=== PATIENT | female | born 1955 | race African-American/Black ===

== ENCOUNTER 2016-09-30 17:27 | Emergency (ER) | payer OTHER ==
[2016-09-30 17:56] LABS: BASO% 0.1 % (0.0-0.8); HEMATOCRIT 39.6 % (37.0-47.0); HEMOGLOBIN 12.6 g/dL (12.0-16.0); IMM GRAN# 0.12 X1000 (0.0-0.04); IMM GRAN% 0.4 % (0.0-0.5); LYMPH% 6.5 % (20.5-51.1); MANUAL DIFF NEEDED? NO; MCH 28.3 PG (27-31); MCHC 31.8 g/dL (33-37); MCV 88.8 FL (81-99); MONO# 1.24 X1000 (0.11-0.59); MONO% 4.5 % (1.7-9.3); NEUT% 88.5 % (42.2-75.2); PLT 372 X1000 (130-400); RBC 4.46 XMIL (4.2-5.4)
[2016-09-30 18:16] LABS: AGAP 15; ALBUMIN 4.6 g/dL (3.5-5.0); ALKALINE PHOSPHATASE 97 U/L (32-104); BUN 10 mg/dL (8-22); CALCIUM 10.1 mg/dL (8.8-10.2); CHLORIDE 104 mmol/L (98-107); COSMO 287; GOT 14 U/L (10-30); GPT 24 U/L (10-36); SODIUM 143 mmol/L (136-145); TCO2 24 mmol/L (25-35); TOTAL BILIRUBIN 0.28 mg/dL (0.20-1.00); TOTAL PROTEIN 7.4 g/dL (6.3-8.3)
--- NOTE | 2016-09-30 19:02 | PROVIDER DOCUMENTATION ---
HPI-Headache - General Chief Complaint: B/P Problems Stated Complaint: BP PROBLEMS Time Seen by Provider: 09/30/16 18:56 Source: patient Allergies/Adverse Reactions: Patient Allergies Allergy/AdvReac Type Severity Reaction Status Date / Time No Known Allergies Allergy Verified 09/30/16 20:22 Home Medications: Atorvastatin Calcium [Lipitor] 20 mg PO DAILY 12/03/15 Levothyroxine [Synthroid] 150 microgm PO DAILY 12/03/15 Losartan [Cozaar] 25 mg PO DAILY 12/03/15 - History of Present Illness-Headache Nature of Presenting Problem: Pt is a 61 y/o AA female c chief complaint of headache and elevated blood pressure x 2 days. Pt has been checking her bp at home. Pt describes her headache as global in nature. Pt denies any changes in vision, decreased urination. Pt was seen by her pcp last week and had a normal check up. Pt has a h/o htn and states she is compliant c her medication. Pt states she had an MRI of her head to evaluate recurrent headaches - ordered by Dr. Weaver (PCP) . Additionally, pt goes to [facility] and was seen yesterday for an injection in her R sciatic area for treatment of chronic pain. Pt was seen at [facility] two weeks ago for apparent panic attack. On arrival, pt is hypertensive and in minimal distress. Review of Systems - Adult - REVIEW OF SYSTEMS - ADULT Constitutional: reports: no symptoms reported. denies: chills, fatique Eyes: reports: no symptoms reported. denies: blurred vision, double vision Ears, Nose, Mouth & Throat: reports: no symptoms reported. denies: ear pain, nose pain Cardiovascular: reports: no symptoms reported. denies: chest pain, irregular heart rate, orthopnea Respiratory: reports: no symptoms reported. denies: cough, shortness of breath Gastrointestinal: reports: no symptoms reported. denies: abdominal pain, diarrhea, nausea Genitourinary: reports: no symptoms reported. denies: dysuria, frequent UTI's, hematuria Musculoskeletal: reports: no symptoms reported. denies: joint pain, joint swelling Integumentary: reports: no symptoms reported. denies: hives, itching Neurological: reports: no symptoms reported. denies: numbness, paresthesia Psychiatric: reports: no symptoms reported. denies: anxiety, emotional problems Endocrine: reports: no symptoms reported. denies: cold intolerance, heat intolerance Hematologic/Lymphatic: reports: no symptoms reported. denies: blood clots, low blood count Allergic/Immunologic: reports: no symptoms reported. denies: allergic reactions , food allergy All Other Systems: Reviewed and Negative Past History - Adult - PAST MEDICAL HISTORY-ADULT Review of Records: reports: Old Records Reviewed, Nursing Assessment Review, Medications Reviewed, Social history reviewed & non-contributory. Major Childhood Illnesses: reports: denies history Cardiovascular: reports: HTN, hyperlipidemia Respiratory: reports: denies history Gastrointestinal: reports: denies history Obstetrical/Gynecological: reports: denies history Genitourinary: reports: denies history Musculoskeletal: reports: arthritis Neurological: reports: headaches/migraines Endocrine/Immune: reports: thyroid disorder Other Conditions: reports: denies history - PRIOR SURGERIES/PROCEDURES Surgical/Procedure History: reports: joint replacement (total knee replacement) - IMMUNIZATION STATUS Childhood Immunizations: See Nurse Assessment Flu Vaccine: See Nurse Assessment - FAMILY HISTORY Family History: reviewed, not pertinent - SOCIAL HISTORY Smoking: cigarettes Provider spent 3-5 mins advising pt. on dangers of tobacco.: Discussed manners to quit use, and f/u contacts for add'l counseling. Substance Use: none/never Alcohol Use Frequency: never Living Situation: family Physical Exam- Neurological - Physical Exam-Neuro Initial Vital Signs Reviewed: Yes General Appearance: appears well, alert, no apparent distress Eye Exam: bilateral eye: normal inspection, PERRL, EOMI HENMT: normocephalic/atraumatic, normal ENT inspection, TMs normal, pharynx normal Head Injury: no evidence of injury Neck: non-tender, full range of motion, supple, normal inspection Respiratory: chest non-tender, lungs clear, normal breath sounds, no pleuratic chest pain, no respiratory distress, no accessory muscle use. negative: respiratory distress, decreased breath sounds, accessory muscle use, crackles, rales, rhonchi, stridor, wheezing, dull on percussion, prolonged expiration, pain on inspiration, plerual rub, retractions, splinting, decreased rate, increased rate, crepitus Cardiovascular: normal peripheral pulses, regular rate, rhythm, no edema, no gallop, no JVD, no murmur Abdominal Exam: normal bowel sounds, non tender, soft, no organomegaly, no pulsatile mass Lymphatic: no adenopathy Extremity: normal range of motion, non-tender, normal gait, normal inspection, no pedal edema, no calf tenderness, normal capillary refill, pelvis stable finger lift operator Exam: normal hearing, normal speech, PERRL Coordination/Gait: normal finger to nose, normal gait, negative Romberg's sign Motor/Sensory: no motor deficit, no sensory deficit, no pronator drift, negative Babinski's sign Neurologic: finger lift operator II-XII nml as tested, no motor/sensory deficits Integumentary: normal color, normal turgor, warm/dry Psych/Mental Status: AL, normal mood/affect, normal thought content, normal thought process, oriented x 3 - Glascow Coma Scale Best Eye Response: (4) open spontaneously Best Verbal Response: (5) oriented Best Motor Response: (6) obeys commands Progress - PLAN OF CARE/RESULTS Progress/Plan/Lab Results: Orders Category Date Time Status CHEST-2 VIEWS [RAD] Stat Exams 09/30/16 19:02 Taken HEAD W/O CONTRAST [CT] Stat Exams 09/30/16 19:07 Taken BLOOD CULTURE [BLDCUL] Stat Lab 09/30/16 19:35 Results CBC WITH ELECTRONIC DIFF [HEME] Stat Lab 09/30/16 17:42 Completed CK PROFILE [SP CHEM] Stat Lab 09/30/16 17:42 Completed CMP [COMPREHENSIVE METABOLIC PANEL] [CHEM] Stat Lab 09/30/16 17:42 Completed LACTATE, PLASMA [CHEM] Stat Lab 09/30/16 19:35 Completed TROPONIN T Stat Lab 09/30/16 17:42 Completed URINALYSIS W/POSS RFLX CULT [URINALYSIS] Stat Lab 09/30/16 17:43 Completed Losartan [Cozaar] Med 09/30/16 19:07 Discontinued 50 mg PO NOW ONE Laboratory Tests 09/30/16 09/30/16 09/30/16 17:42 17:42 17:42 WBC 27.74 H RBC 4.46 Hgb 12.6 Hct 39.6 MCV 88.8 MCH 28.3 MCHC 31.8 L RDW Std Deviation 13.4 Plt Count 372 MPV 11.0 H Immature Gran % (Auto) 0.4 Neut % (Auto) 88.5 H Lymph % (Auto) 6.5 L Darke % (Auto) 4.5 Eos % (Auto) 0.0 Baso % (Auto) 0.1 Immature Gran # (Auto) 0.12 H Neut # (Auto) 24.56 H Lymph # (Auto) 1.80 Darke # (Auto) 1.24 H Eos # (Auto) 0.00 Baso # (Auto) 0.02 Sodium 143 Potassium 4.0 Chloride 104 Carbon Dioxide 24 L Anion Gap 15 BUN 10 Creatinine 0.7 Estimated GFR/1.73 m2 > 60 BUN/Creatinine Ratio 14 Glucose 147 H Calculated Osmolality 287 Calcium 10.1 Total Bilirubin 0.28 AST 14 ALT 24 Alkaline Phosphatase 97 Creatine Kinase 69 Troponin T Total Protein 7.4 Albumin 4.6 Globulin 2.8 Albumin/Globulin Ratio 1.6 Plasma Lactate Urine Source Urine Color Urine Turbidity Urine pH Ur Specific [place] Urine Protein Ur Glucose (Stick) Ur Ketones (Stick) Urine Blood Urine Nitrite Urine Bilirubin Urobilinogen Dipstick Urine Leukocytes Urine WBC (Auto) Urine RBC (Auto) U Epithel Cells (Auto) Urine Bacteria (Auto) 09/30/16 09/30/16 09/30/16 17:42 17:43 19:35 WBC RBC Hgb Hct MCV MCH MCHC RDW Std Deviation Plt Count MPV Immature Gran % (Auto) Neut % (Auto) Lymph % (Auto) Darke % (Auto) Eos % (Auto) Baso % (Auto) Immature Gran # (Auto) Neut # (Auto) Lymph # (Auto) Darke # (Auto) Eos # (Auto) Baso # (Auto) Sodium Potassium Chloride Carbon Dioxide Anion Gap BUN Creatinine Estimated GFR/1.73 m2 BUN/Creatinine Ratio Glucose Calculated Osmolality Calcium Total Bilirubin AST ALT Alkaline Phosphatase Creatine Kinase Troponin T < 0.010 Total Protein Albumin Globulin Albumin/Globulin Ratio Plasma Lactate 1.9 Urine Source CLEAN CATCH Urine Color YELLOW Urine Turbidity CLEAR Urine pH 5.5 Ur Specific [place] 1.018 Urine Protein NEGATIVE Ur Glucose (Stick) NEGATIVE Ur Ketones (Stick) NEGATIVE Urine Blood NEGATIVE Urine Nitrite NEGATIVE Urine Bilirubin NEGATIVE Urobilinogen Dipstick NORMAL Urine Leukocytes NEGATIVE Urine WBC (Auto) <10 Urine RBC (Auto) <10 U Epithel Cells (Auto) <10 Urine Bacteria (Auto) NEGATIVE Vital Signs - 24 hr 09/30/16 09/30/16 17:34 19:47 Temperature 98.6 F Pulse Rate 88 79 Respiratory 18 20 Rate Blood Pressure 186/99 163/83 O2 Sat by Pulse 100 100 Oximetry - REASSESSMENT Reassessment #1 Time Reassessed: 21:51 (Discussed pt c Dr. Sullivan (ER MD) who went to bedside to examine pt after reviewing all imaging studies and labs. Dr. Sullivan agreed c plan of care and disposition.) - XRAY 1 XRAY Study: Chest Impression: Normal XRAY Interpretation: nad - CT/MRI 1 CT Study: Head Impression: Normal CT Results: nad - radiology Departure - Departure Time of Disposition Order: 21:31 DIAGNOSIS: Headache Qualifiers: Headache type: unspecified Headache chronicity pattern: acute headache Intractability: not intractable Qualified Code(s): R51 - Headache Hypertension Qualifiers: Hypertension type: essential hypertension Qualified Code(s): I10 - Essential ( primary) hypertension Leukocytosis Qualifiers: Leukocytosis type: unspecified Qualified Code(s): D72.829 - Elevated white blood cell count, unspecified Disposition: HOME 01 Certified Medical Emergency: Emergent Condition: Stable Additional Instructions: FOLLOW UP WITH PRIMARY CARE PHYSICIAN FOR RE-CHECK OF CBC IN 4 DAYS. ED Follow Up Instructions: You have been treated by a care provider in the Emergency Department. These instructions are being provided to you so you can have an understanding of how to care for yourself upon discharge. Upon discharge from the Emergency Department, you are responsible for making arrangements for follow-up care by a physician of your choice. Take all prescribed medications as directed. Return to the Emergency Department immediately for any new or worsening symptoms. You may call the Physician Referral phone number at [phone] to obtain a list of Physicians who are taking new patients. Referrals: Jae Weaver MD [Primary Care Provider] - Instructions: Migraine Headache, [id number] Attestation - Physician/ Mid-level Attestation Patient care was provided by Mid-level provider (AIRCRAFT NAVIGATOR/PA):: Yes Mid-level provider:: Ming Basilio Mid-level documentation review:: The Mid-level provider documentation, treatment plan and medical decision making was reviewed by the physician who agrees with all treatment and medical decision making by the P.
[2016-09-30] MEDS ORDERED: COZAAR PO ONE (19:07)
[2016-09-30 19:46] LABS: URINE CULTURE NEEDED? NO; URINE MICRO REVIEW NEEDED? NO; URINE SOURCE CLEAN CATCH
[2016-09-30 19:49] LABS: BILIRUBIN URINE NEGATIVE (NEGATIVE); BLOOD URINE NEGATIVE (NEGATIVE); COLOR YELLOW; GLUCOSE URINE NEGATIVE (NEGATIVE); LEUKOCYTES URINE NEGATIVE (NEGATIVE); NITRITE URINE NEGATIVE (NEGATIVE); PH URINE 5.5; PROTEIN URINE NEGATIVE (NEGATIVE); SP GRAVITY URINE 1.018; TURBIDITY URINE CLEAR (CLEAR); UROBILINOGEN URINE NORMAL (NORMAL)
[2016-09-30 19:50] LABS: UR EPITHELIAL CELLS <10 /HPF (<10); URINE BACTERIA NEGATIVE /HPF; URINE RBC <10 /HPF (<10); URINE WBC <10 /HPF (<10)
[2016-09-30 21:57] VITALS: BP 181/75
--- NOTE | 2016-09-30 22:42 | Diag Imaging Result Document ---
PROCEDURE NAME: HEAD W/O CONTRAST - 09/30/2016 CT HEAD WITHOUT CONTRAST: COMPARISON: 09/20/2016. FINDINGS: There is no discrete intracranial mass, mass effect, or intracranial hemorrhage. There is no evidence of hydrocephalus. There is no evidence of acute infarct given the limited sensitivity of CT versus MRI. The surrounding soft tissues and bony structures are essentially unremarkable. IMPRESSION: No evidence of acute intracranial pathology.
--- NOTE | 2016-09-30 23:25 | Diag Imaging Result Document ---
PROCEDURE NAME: CHEST-2 VIEWS - 09/30/2016 PA AND LATERAL RADIOGRAPH OF THE CHEST: COMPARISON: 09/20/2015. FINDINGS: The lungs are grossly clear. There is no discrete pleural fluid collection or pneumothorax. The cardiomediastinal silhouette and upper airway are grossly unremarkable. IMPRESSION: No evidence of acute chest pathology.
== END 2016-09-30 21:58 | disposition home or self-care (01) ==
LOC: ED 17:27
DX: R51 Headache (principal); I10 Essential (primary) hypertension; D72.829 Elevated white blood cell count, unspecified; E78.5 Hyperlipidemia, unspecified; M19.90 Unspecified osteoarthritis, unspecified site; E07.9 Disorder of thyroid, unspecified; F17.210 Nicotine dependence, cigarettes, uncomplicated; Z79.899 Other long term (current) drug therapy; Z71.6 Tobacco abuse counseling; Z96.659 Presence of unspecified artificial knee joint
CPT/HCPCS: 36415; 70450; 71020; 80053; 81001; 82550; 83605; 84484; 85025; 87040

== ENCOUNTER 2016-11-26 09:47 | Emergency (ER) | payer OTHER ==
[2016-11-26 10:51] LABS: MANUAL DIFF NEEDED? NO
[2016-11-26 10:55] LABS: BASO% 0.2 % (0.0-0.8); EOS# 0.03 X1000 (0.0-0.7); EOS% 0.3 % (0.0-10.0); HEMOGLOBIN 12.3 g/dL (12.0-16.0); IMM GRAN# 0.02 X1000 (0.0-0.04); IMM GRAN% 0.2 % (0.0-0.5); LYMPH# 2.29 X1000 (1.2-3.4); MCH 28.6 PG (27-31); MCHC 32.4 g/dL (33-37); MCV 88.4 FL (81-99); MONO# 0.77 X1000 (0.11-0.59); MONO% 7.1 % (1.7-9.3); MPV 10.7 FL (7.4-10.4); NEUT% 71.2 % (42.2-75.2); PLT 253 X1000 (130-400)
[2016-11-26 11:07] LABS: INR 1.07; PROTIME 11.3 Seconds (9.2-11.7); PTT 26.6 Seconds (22.0-36.0)
--- NOTE | 2016-11-26 11:12 | Diag Imaging Result Document ---
PROCEDURE NAME: HEAD W/O CONTRAST - 11/26/2016 CT BRAIN WITHOUT CONTRAST: COMPARISON: Compared to 09/30/2016. FINDINGS: No parenchymal hemorrhage. No epidural or subdural hematoma. No subarachnoid hemorrhage. No mass identified on this noncontrasted exam. No hydrocephalus. No sinus opacification. IMPRESSION: No hemorrhage. Negative brain CT without contrast. A preliminary report was given at 10:33 a.m.
[2016-11-26 11:13] LABS: AGAP 16; ALBUMIN 4.3 g/dL (3.5-5.0); ALKALINE PHOSPHATASE 87 U/L (32-104); BUN 11 mg/dL (8-22); CALCIUM 8.9 mg/dL (8.8-10.2); CHLORIDE 99 mmol/L (98-107); COSMO 280; GOT 22 U/L (10-30); GPT 23 U/L (10-36); POTASSIUM 4.2 mmol/L (3.5-5.1); SODIUM 140 mmol/L (136-145); TCO2 25 mmol/L (25-35); TOTAL PROTEIN 7.2 g/dL (6.3-8.3)
--- NOTE | 2016-11-26 11:47 | Diag Imaging Result Document ---
PROCEDURE NAME: CHEST-PORTABLE - 11/26/2016 PORTABLE CHEST: COMPARISON: Compared to 09/30/2016. FINDINGS: The lungs are well expanded. The heart is not enlarged. The vessels are not distended. No pneumonia. No pleural effusions identified. No free air beneath the diaphragm. IMPRESSION: Negative chest.
[2016-11-26 12:00] LABS: URINE CULTURE NEEDED? NO; URINE MICRO REVIEW NEEDED? NO; URINE SOURCE CLEAN CATCH
[2016-11-26 12:05] LABS: BILIRUBIN URINE NEGATIVE (NEGATIVE); BLOOD URINE NEGATIVE (NEGATIVE); COLOR YELLOW; GLUCOSE URINE NEGATIVE (NEGATIVE); LEUKOCYTES URINE NEGATIVE (NEGATIVE); NITRITE URINE NEGATIVE (NEGATIVE); PROTEIN URINE NEGATIVE (NEGATIVE); SP GRAVITY URINE 1.012; TURBIDITY URINE CLEAR (CLEAR); UROBILINOGEN URINE NORMAL (NORMAL)
[2016-11-26 12:06] LABS: UR EPITHELIAL CELLS <10 /HPF (<10); URINE BACTERIA NEGATIVE /HPF; URINE RBC <10 /HPF (<10); URINE WBC <10 /HPF (<10)
[2016-11-26 12:16] LABS: UR AMPHETAMINES QUAL NONE DETECTED (NONE DETECT); UR BARBITUATES QUAL NONE DETECTED (NONE DETECT); UR BENZODIAZEPIN QUAL PRESUMPTIVE POSITIVE (NONE DETECT); UR CANNABINOIDS QUAL NONE DETECTED (NONE DETECT); UR COCAINE QUAL NONE DETECTED (NONE DETECT); UR METHADONE QUAL NONE DETECTED (NONE DETECT); UR OPIATES QUAL NONE DETECTED (NONE DETECT); UR OXYCODONE QUAL PRESUMPTIVE POSITIVE (NONE DETECT); UR PCP QUAL NONE DETECTED (NONE DETECT)
--- NOTE | 2016-11-26 12:16 | PROVIDER DOCUMENTATION ---
HPI-Neurological Disorder <Uriel Fatima - Last Filed: 11/26/16 12:43> - General Source: patient - History of Present Illness-Neuro Headache Location: reports: frontal Severity: reports: mild Onset/Duration: reports: this morning Timing: reports: improving Context: reports: none Character of Altered Mental Status: reports: N/A Any recent trauma/injury?: reports: none New weakness or altered sensation location:: reports: none Cognitive Baseline: alert, oriented x3 Associated Symptoms: reports: headache Similar Symptoms Previously?: No Recently seen or treated by another doctor?: No <Kika Campo - Last Filed: 11/26/16 15:23> - General Chief Complaint: Brain Attack Stated Complaint: FACIAL TINGLING,HERNANDEZ,HANDS SHAKING Time Seen by Provider: 11/26/16 13:27 Allergies/Adverse Reactions: Patient Allergies Allergy/AdvReac Type Severity Reaction Status Date / Time No Known Allergies Allergy Verified 11/26/16 10:21 Home Medications: Home Medication List Medication Instructions Recorded Confirmed Last Taken Type Atorvastatin Calcium [Lipitor] 20 mg PO DAILY 12/03/15 11/26/16 11/25/16 18:00 History Levothyroxine [Synthroid] 150 microgm PO DAILY 12/03/15 11/26/16 11/26/16 07:00 History Losartan [Cozaar] 25 mg PO DAILY 12/03/15 11/26/16 11/26/16 07:00 History Alprazolam [Xanax] 0.25 mg PO TID PRN #5 tablet 11/26/16 Unknown Rx Hydroxyzine HCl 50 mg PO 4X11/26/16 11/26/16 11/26/16 09:30 History - History of Present Illness-Neuro Nature of Presenting Problem: says that she has not had 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 Patient specifically asked about any difficulty speaking or facial weakness and she says no and that she used to get xanax , however, she has been on another medication that is not working. (Uriel Fatima) Pt is a 61 yof who came to the ED with a cc of tingling of the face. Pt reports she woke up this morning at 5:30 shaking, her face was tingling, and she had a headache. Pt reports she was anxious and has family issues. Pt reports she normally takes anxiety medication but says they do not work. (Kika Campo) Review of Systems - Adult - REVIEW OF SYSTEMS - ADULT Constitutional: denies: chills, fever Eyes: reports: no symptoms reported Ears, Nose, Mouth & Throat: denies: sinus problem, loose teeth Cardiovascular: reports: no symptoms reported Respiratory: reports: no symptoms reported Gastrointestinal: reports: no symptoms reported Genitourinary: reports: no symptoms reported Musculoskeletal: reports: no symptoms reported Integumentary: reports: no symptoms reported Neurological: reports: headache/migraines. denies: seizure, syncope Psychiatric: reports: anxiety. denies: anti-depressant use, insomnia, suicidal thoughts Endocrine: reports: no symptoms reported Hematologic/Lymphatic: reports: no symptoms reported Allergic/Immunologic: reports: no symptoms reported All Other Systems: Reviewed and Negative <Kika Campo - Last Filed: 11/26/16 15:23> Past History - Adult - PAST MEDICAL HISTORY-ADULT Review of Records: reports: Old Records Reviewed, Nursing Assessment Review Major Childhood Illnesses: reports: denies history Cardiovascular: reports: HTN, hyperlipidemia Respiratory: reports: denies history Gastrointestinal: reports: denies history Obstetrical/Gynecological: reports: denies history Genitourinary: reports: denies history Musculoskeletal: reports: arthritis Neurological: reports: headaches/migraines Psychiatric: reports: anxiety Endocrine/Immune: reports: thyroid disorder Other Conditions: reports: denies history - PRIOR SURGERIES/PROCEDURES Surgical/Procedure History: reports: joint replacement (total knee replacement) - IMMUNIZATION STATUS Childhood Immunizations: See Nurse Assessment Flu Vaccine: See Nurse Assessment - FAMILY HISTORY Family History: reviewed, not pertinent <Kika Campo - Last Filed: 11/26/16 15:23> Physical Exam- Neurological - Physical Exam-Neuro Initial Vital Signs Reviewed: Yes General Appearance: alert, no apparent distress HENMT: TMs normal, pharynx normal, other (cataract in both eyes) Head Injury: no evidence of injury Neck: non-tender Respiratory: chest non-tender, lungs clear, normal breath sounds, no pleuratic chest pain, no respiratory distress, no accessory muscle use Cardiovascular: normal peripheral pulses, regular rate, rhythm, no edema, no gallop, no JVD, no murmur Abdominal Exam: normal bowel sounds, non tender, soft, no organomegaly, no pulsatile mass Lymphatic: no adenopathy Extremity: normal range of motion [place] Exam: normal hearing, normal speech Coordination/Gait: normal finger to nose, normal gait Motor/Sensory: no motor deficit, no sensory deficit, no pronator drift Neurologic: [place] II-XII nml as tested, grossly normal, no motor/sensory deficits Integumentary: normal color, normal turgor, warm/dry Psych/Mental Status: normal mood/affect, normal thought content, normal thought process, oriented x 3 - Glascow Coma Scale Best Eye Response: (4) open spontaneously Best Verbal Response: (5) oriented Best Motor Response: (6) obeys commands Total Glascow Score: 15 <Kika Campo - Last Filed: 11/26/16 15:23> Progress <Uriel Fatima - Last Filed: 11/26/16 12:43> - EKG 1 Time of EKG reading by physician:: 10:21 EKG Read and Signed by:: Uriel Fatima EKG Interpretation (*Must complete 3 of following elements*): Abnormal Rate: 95 (nonspecific T wave abnormality ) Rhythm: NSR - XRAY 1 XRAY Study: Chest (negative chest) - CT/MRI 1 CT Study: Head (no hemorrhage. negative brain CT without contrast.) <Kika Campo - Last Filed: 11/26/16 15:23> - PLAN OF CARE/RESULTS Progress/Plan/Lab Results: Vital Signs - 24 hr 11/26/16 11/26/16 09:51 10:28 Temperature 98.2 F Pulse Rate 121 H 94 H Respiratory 18 17 Rate Blood Pressure 152/97 153/79 O2 Sat by Pulse 99 97 Oximetry Orders Category Date Time Status Cardiac Monitoring DIRECTED Care 11/26/16 10:44 Active Finger Stick Blood Sugar (ED) DIRECTED Care 11/26/16 10:44 Active Oxygen Therapy- ED Nursing DIRECTED Care 11/26/16 10:44 Active Saline Loc NOW Care 11/26/16 10:44 Active CHEST-PORTABLE [RAD] Stat Exams 11/26/16 10:44 Draft HEAD W/O CONTRAST [CT] Stat Exams 11/26/16 09:52 Completed CBC WITH ELECTRONIC DIFF [HEME] Stat Lab 11/26/16 10:25 Completed COMPREHENSIVE METABOLIC PANEL [CHEM] Stat Lab 11/26/16 10:25 Completed PROTIME WITH INR [COAG] Stat Lab 11/26/16 10:25 Completed PTT [COAG] Stat Lab 11/26/16 10:25 Completed TROPONIN T Stat Lab 11/26/16 10:25 Completed URINALYSIS W/POSS RFLX CULT [URINALYSIS] Stat Lab 11/26/16 11:50 Completed URINE DRUG SCREEN Stat Lab 11/26/16 11:50 Received EKG [EKG] Stat Ther 11/26/16 10:19 Ordered Laboratory Tests 11/26/16 11/26/16 11/26/16 10:25 10:25 10:25 WBC 10.88 H RBC 4.30 Hgb 12.3 Hct 38.0 MCV 88.4 MCH 28.6 MCHC 32.4 L RDW Std Deviation 12.8 Plt Count 253 MPV 10.7 H Immature Gran % (Auto) 0.2 Neut % (Auto) 71.2 Lymph % (Auto) 21.0 Coos % (Auto) 7.1 Eos % (Auto) 0.3 Baso % (Auto) 0.2 Immature Gran # (Auto) 0.02 Neut # (Auto) 7.75 H Lymph # (Auto) 2.29 [place] # (Auto) 0.77 H Eos # (Auto) 0.03 Baso # (Auto) 0.02 PT 11.3 INR 1.07 PTT (Actin FS) 26.6 Sodium 140 Potassium 4.2 Chloride 99 Carbon Dioxide 25 Anion Gap 16 BUN 11 Creatinine 0.8 Estimated GFR/1.73 m2 > 60 BUN/Creatinine Ratio 14 Glucose 121 H Calculated Osmolality 280 Calcium 8.9 Total Bilirubin 0.40 AST 22 ALT 23 Alkaline Phosphatase 87 Troponin T Total Protein 7.2 Albumin 4.3 Globulin 2.9 Albumin/Globulin Ratio 1.5 Urine Source Urine Color Urine Turbidity Urine pH Ur Specific [place] Urine Protein Ur Glucose (Stick) Ur Ketones (Stick) Urine Blood Urine Nitrite Urine Bilirubin Urobilinogen Dipstick Urine Leukocytes Urine WBC (Auto) Urine RBC (Auto) U Epithel Cells (Auto) Urine Bacteria (Auto) 11/26/16 11/26/16 10:25 11:50 WBC RBC Hgb Hct MCV MCH MCHC RDW Std Deviation Plt Count MPV Immature Gran % (Auto) Neut % (Auto) Lymph % (Auto) [place] % (Auto) Eos % (Auto) Baso % (Auto) Immature Gran # (Auto) Neut # (Auto) Lymph # (Auto) [place] # (Auto) Eos # (Auto) Baso # (Auto) PT INR PTT (Actin FS) Sodium Potassium Chloride Carbon Dioxide Anion Gap BUN Creatinine Estimated GFR/1.73 m2 BUN/Creatinine Ratio Glucose Calculated Osmolality Calcium Total Bilirubin AST ALT Alkaline Phosphatase Troponin T < 0.010 Total Protein Albumin Globulin Albumin/Globulin Ratio Urine Source CLEAN CATCH Urine Color YELLOW Urine Turbidity CLEAR Urine pH 5.0 Ur Specific [place] 1.012 Urine Protein NEGATIVE Ur Glucose (Stick) NEGATIVE Ur Ketones (Stick) TRACE A Urine Blood NEGATIVE Urine Nitrite NEGATIVE Urine Bilirubin NEGATIVE Urobilinogen Dipstick NORMAL Urine Leukocytes NEGATIVE Urine WBC (Auto) <10 Urine RBC (Auto) <10 U Epithel Cells (Auto) <10 Urine Bacteria (Auto) NEGATIVE (Kika Campo) Departure - Departure Time of Disposition Order: 12:43 <Uriel Fatima - Last Filed: 11/26/16 12:43> - Departure Time of Disposition Order: 15:21 Certified Medical Emergency: Emergent <Kika Campo - Last Filed: 11/26/16 15:23> - Departure DIAGNOSIS: Hyperventilation, nonpsychogenic Disposition: HOME 01 Condition: Stable Additional Instructions: ED Follow Up Instructions: You have been treated by a care provider in the Emergency Department. These instructions are being provided to you so you can have an understanding of how to care for yourself upon discharge. Upon discharge from the Emergency Department, you are responsible for making arrangements for follow-up care by a physician of your choice. Take all prescribed medications as directed. Return to the Emergency Department immediately for any new or worsening symptoms. You may call the Physician Referral phone number at [phone] to obtain a list of Physicians who are taking new patients. Prescriptions: Alprazolam [Xanax] 0.25 mg PO TID PRN #5 tablet PRN Reason: Anxiety Referrals: Jae Weaver MD [Primary Care Provider] - Forms: Return to School/Parent Work Instructions: Hyperventilation Attestation - Scribe Verification/Attestation Scribe:: Kika Campo Acting as Scribe for:: Uriel Fatima Scribe documention review:: This chart was documented by a scribe and accurately reflects the service the provider performed and the decisions made by the provider. <Kika Campo - Last Filed: 11/26/16 15:23> Physician Attestation - NIH Stroke Scale Level of Consciousness: 0-Alert LOC Questions (ask month and age): 0-Answers Both Correctly LOC Commands (ask to open & close eyes;make a fist, let go): 0-Obeys Both Correctly Best Gaze (horizontal eye movement): 0-Normal Visual (use finger movement, counting or visual threat): 0-No Visual Loss Facial Palsy (show teeth or raise eyebrows & close eyes tght: 0-Symmetrical Movement Motor Function-left arm: 0-Normal Motor Function-right arm: 0-Normal Motor Function-left le-Normal Motor Function-right le-Normal Limb Ataxia([id number], or heel to paredes): 0-No Ataxia Sensory(pin prick to face,arms,trunk,legs-compare side/side): 0-No Ataxia Best Language(name item/read sentence.Ex-Down to Earth): 0-No Aphasia Dysarthria(Pt read words or say words Ex.Mama,Tip-Top,Thanks: 0-Normal Articulation Extinction and Inattention: 0-Normal NIH Total Score: 0 Modified Carlos Score Criteria: 0-no symptoms <Kika Campo - Last Filed: 11/26/16 15:23>
[2016-11-26 13:01] VITALS: BP 100/75
--- NOTE | 2016-11-27 05:54 | EKG Report ---
Test Performed on : 11/26/2016 10:21:48 AM Test Reason : NUMBNESS Blood Pressure : / mmHG Vent. Rate : 095 BPM Atrial Rate : 096 BPM P-R Int : 152 ms QRS Dur : 088 ms QT Int : 406 ms P-R-T Axes : 020 002 019 degrees QTc Int : 510 ms Normal sinus rhythm. Nonspecific T wave abnormality Abnormal ECG When compared with ECG of 20-SEP-2016 19:19, Vent. rate has increased BY 46 BPM Unconfirmed Result
== END 2016-11-26 13:27 | disposition home or self-care (01) ==
LOC: ED 09:47
DX: R06.4 Hyperventilation (principal); R94.31 Abnormal electrocardiogram [ECG] [EKG]; R51 Headache; R20.2 Paresthesia of skin; G25.89 Other specified extrapyramidal and movement disorders; I10 Essential (primary) hypertension; E78.5 Hyperlipidemia, unspecified; M19.90 Unspecified osteoarthritis, unspecified site; Z79.899 Other long term (current) drug therapy; E07.9 Disorder of thyroid, unspecified; Z96.659 Presence of unspecified artificial knee joint
CPT/HCPCS: 70450; 71010; 80053; 81001; 82948; 84484; 85025; 85610; 85730; 93005; G0480; 80324; 80345; 80346; 80349; 80353; 80358; 80361; 80365; 83992